=== PATIENT | female | born 2000 | race Caucasian/White ===

== ENCOUNTER 2019-10-09 06:59 | Emergency (ER) | payer MEDICAID ==
[~2019-10-09] VITALS: Ht 157.5 cm; Wt 86.2 kg
[2019-10-09 07:02] VITALS: BP 114/68
== END 2019-10-09 07:52 | disposition home or self-care (01) ==
LOC: ER 07:00
DX: J02.9 Acute pharyngitis, unspecified (principal)
CPT/HCPCS: 87081; 87880; 99283

== ENCOUNTER 2021-03-28 20:25 | Emergency (ER) | payer MEDICAID ==
[~2021-03-28] VITALS: Ht 157.5 cm; Wt 81.8 kg
[2021-03-28 20:28] VITALS: BP 145/85
== END 2021-03-28 22:40 | disposition left against medical advice (07) ==
LOC: ER 20:25
DX: R10.9 Unspecified abdominal pain (principal); K59.00 Constipation, unspecified; Z53.21 Procedure and treatment not carried out due to patient leaving prior to being seen by health care provider
CPT/HCPCS: 74018